=== PATIENT | female | born 1960 | race Caucasian/White ===

== ENCOUNTER → 2017-08-05 | Outpatient (CLI) | payer OTHER ==
[~2017-08-05] VITALS: Ht 162.6 cm; Wt 121.4 kg
[~2017-08-05] MED LIST: AMPHETAMINE SAL20 M1 PO
[2017-08-05 12:18] VITALS: BP 150/86
== END ==
LOC: AMSURD 12:08
DX: Z00.00 Encounter for general adult medical examination without abnormal findings (principal); J30.89 Other allergic rhinitis; F90.0 Attention-deficit hyperactivity disorder, predominantly inattentive type; L25.9 Unspecified contact dermatitis, unspecified cause; L30.1 Dyshidrosis [pompholyx]; E78.00 Pure hypercholesterolemia, unspecified; Z12.31 Encounter for screening mammogram for malignant neoplasm of breast; Z13.6 Encounter for screening for cardiovascular disorders

== ENCOUNTER → 2018-08-07 | Outpatient (CLI) | payer BC ==
[2017-08-05 12:18] VITALS: BP 150/86
== END ==
LOC: RAD 07:45
DX: E01.0 Iodine-deficiency related diffuse (endemic) goiter (principal); R53.83 Other fatigue

== ENCOUNTER → 2020-02-08 | Outpatient (CLI) | payer BC ==
[2017-08-05 12:18] VITALS: BP 150/86
[2020-02-08 11:01] LABS: POTASSIUM 4.3 mmol/L (3.5-5.1)
[2020-02-08 11:02] LABS: ALBUMIN 3.7 g/dL (3.5-5.0)
[2020-02-08 11:03] LABS: CALCIUM 8.8 mg/dL (8.3-10.5)
[2020-02-08 11:04] LABS: TOTAL PROTEIN 7.1 g/dL (6.4-8.3)
[2020-02-08 11:06] LABS: TOTAL BILIRUBIN 0.5 mg/dL (0.2-1.2)
== END ==
LOC: LAB 10:32
PROVIDERS: Family Medicine
DX: E78.5 Hyperlipidemia, unspecified (principal)

== ENCOUNTER → 2020-02-15 | Outpatient (CLI) | payer BC ==
[2017-08-05 12:18] VITALS: BP 150/86
[2020-02-15 09:46] LABS: POTASSIUM 4.1 mmol/L (3.5-5.1)
[2020-02-15 09:47] LABS: CALCIUM 8.9 mg/dL (8.3-10.5)
[2020-02-15 09:50] LABS: URINE APPEARANCE HAZY; URINE BILIRUBIN NEGATIVE (NEGATIVE); URINE BLOOD NEGATIVE (NEGATIVE); URINE COLOR YELLOW; URINE GLUCOSE NEGATIVE (NEGATIVE); URINE KETONE NEGATIVE (NEGATIVE); URINE LEUKOCYTE ESTERASE NEGATIVE (NEGATIVE); URINE NITRATE NEGATIVE (NEGATIVE); URINE PROTEIN(semi-quant) TRACE mg/dL (NEGATIVE); URINE UROBILINOGEN NORMAL (NORMAL)
== END ==
LOC: AMSURD 09:22
PROVIDERS: Family Medicine
DX: Z13.6 Encounter for screening for cardiovascular disorders (principal); R09.89 Other specified symptoms and signs involving the circulatory and respiratory systems

== ENCOUNTER → 2020-02-16 | Outpatient (CLI) | payer BC ==
[2017-08-05 12:18] VITALS: BP 150/86
== END ==
LOC: MAMMO 15:15
DX: Z12.31 Encounter for screening mammogram for malignant neoplasm of breast (principal)

== ENCOUNTER → 2020-11-07 | Outpatient (CLI) | payer BC ==
[2017-08-05 12:18] VITALS: BP 150/86
[~2020-11-07] MED LIST changes: +AZITHROMYCIN 500MGPK PO; +DEXAMETHASONE6 M1 PO; +LOPRESSOR 550 MG/TAB PO
[2020-11-07 16:44] LABS: EOS # 0.2 (0.04-0.40); EOS % 2.4 % (1.0-5.0); LYMPH# 2.4 (1.50-4.00); MEAN CELL VOLUME 86 fl (78-100); MEAN CORPUSCULAR HEMOGLOBIN 27 pg (27-31); MEAN CORPUSCULAR HGB CONC 31 g/dL (33-37); MEAN PLATELET VOLUME 9.4 fl (7.4-10.4); MONO # 0.8 (0.20-0.80); NEU # 6.5 (1.40-6.50); PLATELET COUNT 309 K/mm3 (130-400); RED BLOOD COUNT 5.58 M/mm3 (4.10-5.30); RED CELL DISTRIBUTION WIDTH 13.5 % (11.5-14.5); WHITE BLOOD COUNT 10.1 K/mm3 (4.8-10.8)
[2020-11-07 16:55] LABS: ALBUMIN 3.9 g/dL (3.4-4.8)
[2020-11-07 16:56] LABS: POTASSIUM 4.2 mmol/L (3.5-5.1)
[2020-11-07 16:57] LABS: CALCIUM 9.7 mg/dL (8.3-10.5)
[2020-11-07 16:58] LABS: TOTAL PROTEIN 7.5 g/dL (6.2-8.1)
[2020-11-07 17:00] LABS: TOTAL BILIRUBIN 0.4 mg/dL (0.2-1.2)
[2020-11-07 17:05] LABS: MAGNESIUM 2.12 mg/dL (1.60-2.60)
== END ==
LOC: LAB 16:35
PROVIDERS: Family Medicine
DX: I10 Essential (primary) hypertension (principal); R25.2 Cramp and spasm

== ENCOUNTER → 2020-11-24 | Outpatient (CLI) | payer BC ==
[2017-08-05 12:18] VITALS: BP 150/86
[2020-11-24 16:06] LABS: URINE APPEARANCE CLOUDY; URINE BILIRUBIN 1+ (NEGATIVE); URINE BLOOD TRACE (NEGATIVE); URINE COLOR YELLOW; URINE GLUCOSE NEGATIVE (NEGATIVE); URINE KETONE 1+ (NEGATIVE); URINE NITRATE NEGATIVE (NEGATIVE); URINE PROTEIN(semi-quant) NEGATIVE (NEGATIVE); URINE UROBILINOGEN NORMAL (NORMAL)
[2020-11-24 16:07] LABS: URINE LEUKOCYTE ESTERASE 1+ (NEGATIVE); URINE MUCUS PRESENT (NOT PRESENT)
== END ==
LOC: LAB 15:39
PROVIDERS: Family Medicine
DX: I10 Essential (primary) hypertension (principal)

== ENCOUNTER → 2020-11-30 | Outpatient (CLI) | payer BC ==
[2017-08-05 12:18] VITALS: BP 150/86
[2020-11-30 17:50] LABS: URINE APPEARANCE CLOUDY; URINE COLOR YELLOW; URINE GLUCOSE NEGATIVE (NEGATIVE); URINE KETONE NEGATIVE (NEGATIVE); URINE PROTEIN(semi-quant) NEGATIVE (NEGATIVE)
[2020-11-30 17:51] LABS: URINE BILIRUBIN NEGATIVE (NEGATIVE); URINE BLOOD NEGATIVE (NEGATIVE); URINE LEUKOCYTE ESTERASE TRACE (NEGATIVE); URINE MUCUS PRESENT (NOT PRESENT); URINE NITRATE NEGATIVE (NEGATIVE); URINE UROBILINOGEN NORMAL (NORMAL)
== END ==
LOC: LAB 16:50
PROVIDERS: Family Medicine
DX: R31.9 Hematuria, unspecified (principal)

== ENCOUNTER 2021-07-03 12:13 | Emergency (ER) | payer BC ==
[~2021-07-03] VITALS: Ht 162.6 cm; Wt 121.4 kg
[~2021-07-03 12:13] MED LIST changes: -AZITHROMYCIN 500MGPK PO; -DEXAMETHASONE6 M1 PO; -LOPRESSOR 550 MG/TAB PO
[2021-07-03 12:56] LABS: HEMATOCRIT 48.6 % (37.0-47.0); HEMOGLOBIN 15.8 g/dL (12.5-16.0); MEAN CELL VOLUME 85 fl (78-100); MEAN CORPUSCULAR HEMOGLOBIN 28 pg (27-31); MEAN CORPUSCULAR HGB CONC 33 g/dL (33-37); MEAN PLATELET VOLUME 10.3 fl (7.4-10.4); PLATELET COUNT 229 K/mm3 (130-400); RED BLOOD COUNT 5.74 M/mm3 (4.10-5.30); RED CELL DISTRIBUTION WIDTH 13.6 % (11.5-14.5); WHITE BLOOD COUNT 15.6 K/mm3 (4.8-10.8)
[2021-07-03 13:05] LABS: ALBUMIN 3.7 g/dL (3.4-4.8); POTASSIUM 3.5 mmol/L (3.5-5.1)
[2021-07-03 13:06] LABS: CALCIUM 9.3 mg/dL (8.3-10.5)
[2021-07-03 13:07] LABS: TOTAL PROTEIN 7.5 g/dL (6.2-8.1)
[2021-07-03 13:09] LABS: TOTAL BILIRUBIN 0.7 mg/dL (0.2-1.2)
[2021-07-03 13:20] LABS: D-DIMER 0.88 mg/L FEU (0.15-0.50)
[2021-07-03 13:35] LABS: BAND 3 % (0-10); LYMPHOCYTE 5 % (20-51); MONOCYTE 6 % (3-10); NEUTROPHILS 86 % (42-75)
[2021-07-03] MEDS ORDERED: DEXAMETHASONE6 M1 PO (13:40)
[2021-07-03] MEDS ORDERED: AZITHROMYCIN 500MGPK PO (13:40)
[2021-07-03] MEDS ORDERED: LOPRESSOR 550 MG/TAB PO (13:41)
[2021-07-03 14:15] LABS: PARTIAL THROMBOPLASTIN TIME 20.6 SECONDS (21.0-32.0); PROTHROMBIN TIME 9.7 SECONDS (9.0-12.0)
[2021-07-03 17:37] VITALS: BP 138/72
[2021-07-03 18:30] LABS: URINE APPEARANCE CLEAR; URINE COLOR YELLOW
[2021-07-03 18:31] LABS: URINE BILIRUBIN NEGATIVE (NEGATIVE); URINE BLOOD 50 ery/uL (NEGATIVE); URINE GLUCOSE NEGATIVE (NEGATIVE); URINE KETONE 2+ (NEGATIVE); URINE LEUKOCYTE ESTERASE NEGATIVE (NEGATIVE); URINE MUCUS PRESENT (NOT PRESENT); URINE NITRATE NEGATIVE (NEGATIVE); URINE PROTEIN(semi-quant) TRACE mg/dL (NEGATIVE); URINE UROBILINOGEN NORMAL (NORMAL); URINE WBC 0-1 /hpf (0-3)
== END 2021-07-03 17:37 | disposition short-term general hospital (02) ==
LOC: ED 12:13
PROVIDERS: Nurse Practitioner
DX: U07.1 COVID-19 (principal); R09.02 Hypoxemia; D72.829 Elevated white blood cell count, unspecified; R79.1 Abnormal coagulation profile; E66.01 Morbid (severe) obesity due to excess calories; I10 Essential (primary) hypertension; F90.9 Attention-deficit hyperactivity disorder, unspecified type; Z79.899 Other long term (current) drug therapy; Z68.42 Body mass index [BMI] 45.0-49.9, adult
CPT/HCPCS: J0696; J1100; J1650; J7030

== ENCOUNTER → 2021-08-16 | Outpatient (CLI) | payer BC ==
[~2021-08-16] MED LIST changes: +AZITHROMYCIN 500MGPK PO; +DEXAMETHASONE6 M1 PO; +LOPRESSOR 550 MG/TAB PO
[2021-08-16 12:10] LABS: CALCIUM 9.4 mg/dL (8.3-10.5)
== END ==
LOC: LAB 11:11
PROVIDERS: Family Medicine
DX: I50.9 Heart failure, unspecified (principal)

== ENCOUNTER → 2021-10-20 | Outpatient (CLI) | payer BC ==
[2021-10-20 07:30] LABS: BASO # 0.06 K/mm3 (0.02-0.10); EOS # 0.25 K/mm3 (0.04-0.40); HEMATOCRIT 44.6 % (37.0-47.0); HEMOGLOBIN 14.1 g/dL (12.5-16.0); MEAN CELL VOLUME 90 fl (78-100); MEAN CORPUSCULAR HEMOGLOBIN 28 pg (27-31); MEAN CORPUSCULAR HGB CONC 32 g/dL (33-37); MEAN PLATELET VOLUME 9.7 fl (7.4-10.4); MONO # 0.74 K/mm3 (0.20-0.80); NEU # 5.68 K/mm3 (1.40-6.50); PLATELET COUNT 284 K/mm3 (130-400); RED BLOOD COUNT 4.97 M/mm3 (4.10-5.30); RED CELL DISTRIBUTION WIDTH 13.4 % (11.5-14.5); WHITE BLOOD COUNT 8.5 K/mm3 (4.8-10.8)
== END ==
LOC: LAB 07:15
PROVIDERS: Family Medicine
DX: E11.9 Type 2 diabetes mellitus without complications (principal); U07.1 COVID-19; I10 Essential (primary) hypertension; L01.00 Impetigo, unspecified; G47.01 Insomnia due to medical condition

== ENCOUNTER → 2021-11-09 | Outpatient (CLI) | payer BC ==
[2021-11-09 17:17] LABS: EOS # 0.28 K/mm3 (0.04-0.40); EOS % 2.7 % (1.0-5.0); HEMOGLOBIN 14.1 g/dL (12.5-16.0); LYMPH# 2.16 K/mm3 (1.50-4.00); MEAN CELL VOLUME 91 fl (78-100); MEAN CORPUSCULAR HEMOGLOBIN 29 pg (27-31); MEAN CORPUSCULAR HGB CONC 31 g/dL (33-37); MEAN PLATELET VOLUME 9.9 fl (7.4-10.4); MONO # 0.92 K/mm3 (0.20-0.80); NEU # 6.88 K/mm3 (1.40-6.50); PLATELET COUNT 296 K/mm3 (130-400); RED BLOOD COUNT 4.95 M/mm3 (4.10-5.30); RED CELL DISTRIBUTION WIDTH 12.9 % (11.5-14.5); WHITE BLOOD COUNT 10.4 K/mm3 (4.8-10.8)
[2021-11-09 17:24] LABS: POTASSIUM 4.5 mmol/L (3.5-5.1)
[2021-11-09 17:25] LABS: CALCIUM 9.6 mg/dL (8.3-10.5)
[2021-11-09 17:28] LABS: TOTAL BILIRUBIN 0.3 mg/dL (0.2-1.2)
== END ==
LOC: LAB 17:02
PROVIDERS: Family Medicine
DX: L65.9 Nonscarring hair loss, unspecified (principal); F32.A Depression, unspecified; Z86.16 Personal history of COVID-19

== ENCOUNTER → 2022-01-24 | Outpatient (CLI) | payer BC ==
[2022-01-24 16:41] LABS: BASO # 0.04 K/mm3 (0.02-0.10); EOS # 0.14 K/mm3 (0.04-0.40); EOS % 1.1 % (1.0-5.0); HEMATOCRIT 45.6 % (37.0-47.0); HEMOGLOBIN 14.3 g/dL (12.5-16.0); LYMPH# 1.26 K/mm3 (1.50-4.00); MEAN CELL VOLUME 86 fl (78-100); MEAN CORPUSCULAR HEMOGLOBIN 27 pg (27-31); MEAN CORPUSCULAR HGB CONC 31 g/dL (33-37); MEAN PLATELET VOLUME 9.7 fl (7.4-10.4); MONO # 1.03 K/mm3 (0.20-0.80); NEU # 10.29 K/mm3 (1.40-6.50); PLATELET COUNT 294 K/mm3 (130-400); RED BLOOD COUNT 5.28 M/mm3 (4.10-5.30); RED CELL DISTRIBUTION WIDTH 13.9 % (11.5-14.5); WHITE BLOOD COUNT 12.8 K/mm3 (4.8-10.8)
[2022-01-24 17:07] LABS: D-DIMER 0.79 mg/L FEU (0.15-0.50)
[2022-01-24 17:42] LABS: ERYTHROCYTE SEDIMENTATION RATE 102 mm/hr (0-30)
== END ==
LOC: LAB 16:30
PROVIDERS: Family Medicine
DX: I82.409 Acute embolism and thrombosis of unspecified deep veins of unspecified lower extremity (principal)

== ENCOUNTER → 2022-01-25 | Outpatient (CLI) | payer BC | LOC: VAS 11:21 | DX: R22.42 Localized swelling, mass and lump, left lower limb (principal); Z86.718 Personal history of other venous thrombosis and embolism ==

== ENCOUNTER → 2023-09-25 | Outpatient (CLI) | payer BC ==
[~2023-09-25] MED LIST changes: +CODEINE-GUAIFE120 ML PO; +ELIQUIS5 MG PO; +METFORMIN ER500 MG PO
[2023-09-25 17:23] LABS: CALCIUM 9.7 mg/dL (8.3-10.5)
== END ==
LOC: LAB 16:48
PROVIDERS: Family Medicine
DX: E11.9 Type 2 diabetes mellitus without complications (principal); I10 Essential (primary) hypertension

== ENCOUNTER → 2024-04-29 | Outpatient (CLI) | payer BC | LOC: MAMMO 16:00 | DX: Z12.31 Encounter for screening mammogram for malignant neoplasm of breast (principal) ==

== ENCOUNTER → 2024-09-24 | Outpatient (CLI) | payer OTHER ==
[2024-09-24 17:26] LABS: CALCIUM 9.3 mg/dL (8.3-10.5)
== END ==
LOC: LAB 16:57
PROVIDERS: Family Medicine
DX: E11.9 Type 2 diabetes mellitus without complications (principal); E78.2 Mixed hyperlipidemia; I10 Essential (primary) hypertension